=== PATIENT | female | born 1960 | race Caucasian/White ===

== ENCOUNTER → 2017-04-02 | Outpatient (CLI) | payer BC, OTHER ==
[~2017-04-02] MED LIST: ACET-24 PO; ASPI-320 PO; CHOL100010 PO; CHOL2000 PO; FRRG PO; HYDR25TA5 PO; LEVO100T PO; LEVO112T4 PO; NAPR1TAB9 PO; RXC5 PO; TAMO20TA9 PO; TURM1CAP4 PO; [UNRECOGNIZED DRUG - OTHER] PO
== END | disposition home or self-care (01) ==
LOC: C.LAB 17:25
PROVIDERS: ATTEND Internal Medicine Geriatric Medicine
DX: N39.0 Urinary tract infection, site not specified (principal)

== ENCOUNTER → 2017-04-19 | Outpatient (CLI) | payer OTHER ==
[~2017-04-19] MED LIST changes: -ACET-24 PO; -ASPI-320 PO; -CHOL2000 PO; -FRRG PO; -LEVO112T4 PO; -RXC5 PO; -TURM1CAP4 PO; -[UNRECOGNIZED DRUG - OTHER] PO
== END | disposition home or self-care (01) ==
LOC: C.LABSPEC 10:38
PROVIDERS: ATTEND Internal Medicine Geriatric Medicine
DX: N39.0 Urinary tract infection, site not specified (principal)